=== PATIENT | female | born 1930 | race Caucasian/White ===

== ENCOUNTER 2017-01-09 11:27 | Inpatient (IN) | payer MEDICARE ==
[2017-01-09 12:32] LABS: ALT (SGPT) 14 U/L (8-55); AST (SGOT) 20 U/L (5-34); Alkaline Phosphatase 88 U/L (40-150); Anion Gap 12 mmol/L (10-20); BUN (Urea Nitrogen) 10 mg/dL (9.8-20.1); Bilirubin, Total 0.7 mg/dL (0.2-1.2); Calc. Creatinine Clearance 0 mL/min (70-130); Calcium 9.1 mg/dL (7.8-10.44); Carbon Dioxide 25 mmol/L (23-31); Chloride 107 mmol/L (98-107); Estimated GFR-MDRD 80; Globulin 3.2 g/dL (2.4-3.5); Protein, Total 6.5 g/dL (6.0-8.3)
[2017-01-09 12:34] LABS: #Basophils 0.1 thou/uL (0.0-0.2); #Eosinphils 0.1 thou/uL (0.0-0.7); #Lymphocytes 1.2 thou/uL (1.20-3.40); #Monocytes 0.4 thou/uL (0.11-0.59); #Neutrophils 3.4 thou/uL (1.40-6.50); %Basophils 1.1 % (0.0-1.0); %Eosinophils 1.4 % (0.0-10.0); %Lymphocytes 23.4 % (21.0-51.0); %Monocytes 7.1 % (0.0-10.0); Anisocytosis SLIGHT = 6-15 cells (100X) (0-5/hpf); Mean Platelet Volume 8.5 fL (7.4-10.4); Polychromasia SLIGHT = 2-3 cells (100X) (0-2/hpf); White Blood Cell (WBC) Count 5.1 thou/uL (4.8-10.8)
--- NOTE | 2017-01-09 12:45 | RAD ---
1 VIEW CHEST: Date: 01/09/17 HISTORY: Shortness of breath. COMPARISON: None. FINDINGS: Enlarged cardiac silhouette. There appears to be an increased lucency projecting over the left hemit horax which may represent a hiatal hernia. Better interrogation with 2 view chest radiograph is kalyan mmended. Pulmonary vessels are prominent. Possibility of a left-sided effusion and left lower lobe lung paren chymal changes cannot be excluded. No pneumothorax. IMPRESSION: 1. Congestive heart failure. 2. Possible infiltrate left lower lobe. 3. Possible hiatal hernia in left hemithorax. A 2 view chest radiograph is recommended. POS: [facility] [place]
[2017-01-09 13:07] LABS: Prothrombin Time 14.4 SEC (12.0-14.7)
[2017-01-09 13:13] LABS: Lactic Acid - Sepsis 1.6 mmol/L (0.5-2.2)
[2017-01-09 13:22] LABS: Troponin I 0.018 ng/mL (< 0.028)
[2017-01-09] MEDS ORDERED: Furosemide 40 MG/4 ML VIAL ONE (13:32)
[2017-01-09 13:33] LABS: Anion Gap 7 mmol/L (-14-95); T. Carbon Dioxide 31.5 mmol/L (1.0-85.0); pH (Venous) 7.313 (7.35-7.45); vO2 Saturation-calc 72.1 % (0.0-100.0)
[2017-01-09 14:11] LABS: Bilirubin Negative (Negative); Blood, Urine Negative (Negative); Glucose, Urine (Dipstick) Negative (Negative); Ketone, Urine Negative (Negative); Nitrite Negative (Negative); Protein, Urine (Dipstick) Negative (Neg-Trace)
[2017-01-09] MEDS ORDERED: Water For Inject, Bacteriostat 30 ML ONE (14:55)
[2017-01-09] MEDS ORDERED: methylPREDNISolone Sod Succ/PF 125 MG/2 ML VIAL ONE (14:55)
--- NOTE | 2017-01-09 15:33 | HP ---
PRIMARY CARE PHYSICIAN: The patient is originally from [place], currently moved to [facility], lives with her daughter and she is following Dr. Jorge Sampson. HISTORY OF PRESENT ILLNESS: An 86-year-old female who has multiple medical problems including atria l fibrillation, chronic congestive heart failure, COPD, hypertension, who came to the emergency room for increasing shortness of breath. The patient also noticed bilateral lower extremity edema with mild erythema and tenderness. This was also going on for the last 7-10 days. The patient does have chronic physical deconditioning. She has chronic low back pain. The patient is dependent on all t ype of care to others. She denies any fever or chills. She denies any cough. She denies any chest pain, palpitations, dizziness, or syncope. In the emergency room, the patient was having bilateral wheezing and she was having lower extremity edema. She was also found with atrial fibrillation with RVR. The patient is being admitted to [facility] for further evaluation and treatment. PAST MEDICAL HISTORY: Morbid obesity, chronic physical deconditioning, chronic congestive heart christina lure, likely diastolic, atrial fibrillation, hypertension, and COPD. PAST SURGICAL HISTORY: Pilonidal cyst surgery, oral surgery, appendicectomy, cholecystectomy, and h ysterectomy. PAST PSYCHIATRIC HISTORY: Senile dementia. FAMILY HISTORY: No strong family history of premature coronary artery disease, stroke or cancer. ALLERGIES: PENICILLAMINE. CURRENT HOME MEDICATIONS: Ibuprofen 600 mg 3 times daily p.r.n., clonidine 0.1 mg twice daily p.r.n ., melatonin 3 mg p.o. at bedtime, aspirin 81 mg p.o. daily, Lasix 40 mg twice daily, lisinopril 5 m g p.o. daily, metoprolol tartrate 12.5 mg twice daily, MiraLax 17 grams p.o. daily, DuoNeb q.6 hourl y, calcium carbonate one tablet as needed, probiotic as needed, hyoscyamine 0.125 mg q.6 hourly p.r. n. REVIEW OF SYSTEMS: The following complete review of systems was negative, unless otherwise mentione d in the HPI or below: Constitutional: Weight loss or gain, ability to conduct usual activities. Skin: Rash, itching. Eyes: Double vision, pain. ENT/Mouth: Nose bleeding, neck stiffness, pain, tenderness. Cardiovascular: Palpitations, dyspnea on exertion, orthopnea. Respiratory: Shortness of breath, wheezing, cough, hemoptysis, fever or night sweats. Gastrointestinal: Poor appetite, abdominal pain, heartburn, nausea, vomiting, constipation, or diar kim. Genitourinary: Urgency, frequency, dysuria, nocturia. Musculoskeletal: Pain, swelling. Neurologic/Psychiatric: Anxiety, depression. Allergy/Immunologic: Skin rash, bleeding tendency. Please see my HPI for pertinent positives and negatives. All other review of systems reviewed and n egative except as mentioned in the HPI. SOCIAL HISTORY: The patient lives with her daughter. She is originally from [place]. 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 No history of tobacco, al cohol or illicit drug abuse. She is physically deconditioning and dependent on others for care. CODE STATUS: I discussed the code status with the patient and the patient is able to make her own d ecision and she does not want to try any kind of cardiopulmonary resuscitation in case of cardiac or pulmonary arrest and she requesting DNR order. EMERGENCY ROOM COURSE: The patient is given Lasix 40 mg IV, aspirin 162 mg, DuoNeb therapy, IV flui d 250 mL, cefepime 2 gram, Levaquin 750 mg, and Solu-Medrol 125 mg. PHYSICAL EXAMINATION: VITAL SIGNS: On arrival, blood pressure 134/100, pulse 109, respiratory rate 24, temperature 97.6, saturation 92% on room air, weight 113.4 kilograms. GENERAL: The patient is currently alert, awake, chronically ill, no obvious acute distress. HEENT: Head: Normocephalic and atraumatic. Eyes: Pupils round and reactive to light. Extraocula r muscles are intact. ENT: Oropharynx within normal limits. Moist mucous membranes. No oral lesi ons. No pharyngeal erythema, no exudate. NECK: Supple. Range of motion is normal. No meningeal signs of irritation, no JVD, no thyromegaly , no carotid bruit. LUNGS: Bilateral end expiratory wheezing heard. No rales. CARDIAC: S1, S2 irregularly irregular. No murmur elicited. No gallop, no rub. ABDOMEN: Obesity, bowel sounds present, nontender, nondistended. No organomegaly, no mass, no supr apubic tenderness. BACK: Unremarkable, no CVA tenderness. EXTREMITIES: Upper extremity passive movements of all joints are normal. Lower extremities: Bilat eral lower extremity pitting edema noted. The patient does have mild erythema on both lower extremi ties, good peripheral pulsation. SKIN: No skin rash. HEMATOLOGICAL: No lymphadenopathy. PSYCHIATRIC: Normal affect. NEUROLOGIC: Nonfocal examination. The patient moves all 4 limbs. Plantar bilateral flexor. SIGNIFICANT LABS: EKG based on my review, atrial fibrillation with rapid ventricular response. Vi st x-ray based on my review, left lower lobe infiltration, hiatal hernia, findings suggestive of con gestive heart failure. CBC: WBC 5.1, hemoglobin 11.3, platelets 343. INR 1.1. VBG: pH 7.31, CO2 58.7, O2 42.5, bicarbonate 29.7. BMP: Sodium 140, potassium 4.4, chloride 107, carbon dioxide 25, anion gap 12, BUN 10, creatinine 0.70, glucose 102, calcium 9.1. LFT: AST 20, ALT 14, alkaline ph osphatase 88, albumin 3.3. CK-MB 2.6. Troponin I 0.018. BNP 402.7. Urinalysis normal. ASSESSMENT AND PLAN: 1. Acute on chronic congestive heart failure exacerbation. I am suspecting diastolic congestive he art failure, given her long history of atrial fibrillation and morbid obesity. We will obtain echoc ardiography to confirm ejection fraction and other structural abnormality. The patient has lower ex tremity pitting edema, increasing dyspnea as well as chest x-ray finding of congestive heart failure . This patient will require hospitalization. We will continue with Lasix 40 mg IV b.i.d. Fluid re striction 1200 mL per day. We will monitor input output chart, daily weight and will replace electr olytes as needed basis. 2. Chronic obstructive pulmonary disease exacerbation. This patient also has underlying chronic ob structive pulmonary disease history, we will continue with the DuoNeb every 6 hourly along with Dule ra 2 puffs inhalation b.i.d., and Solu-Medrol 20 mg IV q.8 hourly. 3. Bilateral lower extremity cellulitis. We will also continue Rocephin 2 gram IV daily and Levaqu in 500 mg IV daily. 4. Atrial fibrillation with rapid ventricular response. We will add metoprolol 12.5 mg twice daily and we will also add Cardizem 30 mg p.o. a.c. and at bedtime. We will also continue aspirin 325 mg p.o. daily. The patient is not a good candidate for chronic anticoagulation therapy because of her physical deconditioning and fall risk. If the patient heart rate is still not under control, then we will consider Cardizem drip if needed. 5. Hypertension. We will continue with lisinopril 5 mg p.o. daily, metoprolol 12.5 mg twice daily and Cardizem. 6. Morbid obesity. Dietary education given, weight loss education given. Healthy lifestyle measur es discussed with the patient. 7. Chronic Physical deconditioning. The patient will need PT, OT, and possible discharge planning to rehab versus correction home. 8. Left lower lobe infiltration, suspected for pneumonia. The patient is already on Rocephin and L evaquin therapy. 9. Deep venous thrombosis prophylaxis. Lovenox 40 mg subcu daily. 10. Gastrointestinal prophylaxis. Protonix 40 mg p.o. daily. CODE STATUS: The patient wants to be a DNR. The patient's daughter is surrogate decision maker. Disposition plan based on clinical course. This patient's labs appears unremarkable, but looking at clinically this patient is more worse than looking on the labs, doubt this patient will get better in 24 hours.
[2017-01-09] MEDS ORDERED: Labetalol HCl 100 MG/20 ML VIAL SLOW IVP PRN (17:01)
[2017-01-09] MEDS ORDERED: cefTRIAXone\\ROCEPHIN 2 GM in Sodium Chloride 0.9% 100 ML IVPB SCH (17:01)
[2017-01-09] MEDS ORDERED: Ondansetron ODT 4 MG TAB PO PRN (17:01)
[2017-01-09] MEDS ORDERED: Loperamide HCl 2 MG CAP PO PRN (17:01)
[2017-01-09] MEDS ORDERED: Senokot 8.6 MG TAB PO PRN (17:01)
[2017-01-09] MEDS ORDERED: Hyoscyamine Sulfate SL 0.125 mg Tablet PO PRN (17:01)
[2017-01-09] MEDS ORDERED: Mag-Al 1200 mg/1200 mg/30 ML UDCUP PO PRN (17:01)
[2017-01-09] MEDS ORDERED: Calcium Carbonate 500 MG ChewTAB PO PRN (17:01)
[2017-01-09] MEDS ORDERED: cloNIDine 0.1 MG TAB PO PRN (17:01)
[2017-01-09] MEDS ORDERED: Eucerin (Mineral Oil/Petrolatum,White) 30 gm Jar TOP PRN (17:01)
[2017-01-09] MEDS ORDERED: HYDROcodone/Acetaminophen 5/325 mg Tablet PO PRN (17:01)
[2017-01-09] MEDS ORDERED: Acetaminophen 325 MG TAB PO PRN (17:01)
[2017-01-09] MEDS ORDERED: Ondansetron HCl/PF 4 MG/2 ML Vial IVP PRN (17:01)
[2017-01-09] MEDS ORDERED: Sodium Chloride 0.65% Nasal 44 ML BOT EA NARE PRN (17:01)
[2017-01-09] MEDS ORDERED: Milk Of Magnesia 30 ML UDCUP PO PRN (17:01)
[2017-01-09] MEDS ORDERED: Chloraseptic Spray 180 ml Bottle PO PRN (17:01)
[2017-01-09] MEDS ORDERED: Melatonin 3 MG TAB PO PRN (17:01)
[2017-01-09] MEDS ORDERED: Artificial Tear Sol 15 ML BOT EA EYE PRN (17:01)
[2017-01-09] MEDS ORDERED: Diabetic Tussin 200 MG/10 ML UDCUP PO PRN (17:01)
[2017-01-09] MEDS ORDERED: Loratadine 10 MG TAB PO PRN (17:01)
[2017-01-09 17:06] VITALS: BMI 46.5
[2017-01-09] MEDS: Mometasone/Formoterol 120 PUFF INHALER INH SCH (18:37)
[2017-01-09] MEDS ORDERED: Diltiazem HCl 125 MG, Admixture Fee 1 EACH in Sodium Chloride 0.9% 100 ML IVPB SCH (19:00)
[2017-01-09] MEDS: Famotidine 20 MG TAB PO SCH (19:50)
[2017-01-09] MEDS: Metoprolol Tartrate 25 MG TAB PO SCH (19:51)
[2017-01-09] MEDS ORDERED: Aspirin 325 MG TAB PO SCH (23:00)
[2017-01-10] MEDS: Furosemide 40 MG/4 ML VIAL SLOW IVP SCH ×2 (05:13→14:49)
[2017-01-10] MEDS: Benzonatate 100 MG CAP PO PRN ×2 (05:20→16:30)
[2017-01-10 05:22] LABS: #Lymphocytes 0.5 thou/uL (1.20-3.40); #Neutrophils 2.9 thou/uL (1.40-6.50); %Eosinophils 0.1 % (0.0-10.0); %Lymphocytes 15.4 % (21.0-51.0); Hematocrit 37.7 % (36.0-47.0); Mean Platelet Volume 8.5 fL (7.4-10.4); Red Blood Cell (RBC) Count 4.41 mill/uL (4.20-5.40); White Blood Cell (WBC) Count 3.5 thou/uL (4.8-10.8)
[2017-01-10 05:30] LABS: Anion Gap 14 mmol/L (10-20); BUN (Urea Nitrogen) 13 mg/dL (9.8-20.1); Calc. Creatinine Clearance 108 mL/min (70-130); Calcium 9.2 mg/dL (7.8-10.44); Carbon Dioxide 26 mmol/L (23-31); Chloride 106 mmol/L (98-107); Estimated GFR-MDRD 70; Uric Acid 9.2 mg/dL (2.6-6.0)
[2017-01-10] MEDS: Mometasone/Formoterol 120 PUFF INHALER INH SCH ×2 (06:58→19:17)
[2017-01-10] MEDS: Lisinopril 5 MG TAB PO SCH (08:16)
[2017-01-10] MEDS: Metoprolol Tartrate 25 MG TAB PO SCH ×2 (08:16→21:46)
[2017-01-10] MEDS: Famotidine 20 MG TAB PO SCH ×2 (08:16→21:45)
[2017-01-10] MEDS: Enoxaparin Sodium 40 MG/0.4 ML SYRINGE SC SCH (08:17)
[2017-01-10] MEDS: Polyethylene Glycol 3350 17 GM Packet PO SCH (08:17)
[2017-01-10] MEDS: Saccharomyces boulardii 250 MG CAP PO SCH (08:17)
--- NOTE | 2017-01-10 14:37 | PDOC.PN ---
- Subjective Encounter Start Date: 01/10/17 Encounter Start Time: 10:00 Subjective: awake, not fully oriented -: no chest pain - Objective Resuscitation Status: Resuscitation Status DNR:Do Not Resuscitate MAR Reviewed: Yes Vital Signs & Weight: Vital Signs (12 hours) Temp Pulse Pulse Pulse Pulse Pulse Resp 01/10/17 11:18 83 71 82 75 01/10/17 08:36 98.6 F 89 20 01/10/17 08:25 98.6 F 89 20 01/10/17 06:56 86 18 01/10/17 04:00 98.2 F 113 H 21 H BP BP BP BP BP Pulse Ox Pulse Ox 01/10/17 11:18 97/56 L 107/51 L 172/73 H 141/64 H 96 01/10/17 08:36 134/65 92 L 01/10/17 08:25 01/10/17 06:56 95 01/10/17 04:00 167/81 H 95 Pulse Ox Pulse Ox 01/10/17 11:18 95 97 01/10/17 08:36 01/10/17 08:25 01/10/17 06:56 01/10/17 04:00 Weight Weight 286 lb 3.2 oz I&O: 01/09/17 01/10/17 01/11/17 06:59 06:59 06:59 Intake Total 600 600 Output Total 500 1750 Balance 100 -1150 Result Diagrams: 01/10/17 04:43 01/10/17 04:43 Phys Exam - Physical Examination HEENT: PERRLA, moist MMs Neck: no JVD, supple Respiratory: no wheezing, no rales Cardiovascular: RRR, no significant murmur Gastrointestinal: soft, non-tender, positive bowel sounds Musculoskeletal: no edema, pulses present Neurological: non-focal, moves all 4 limbs Dx/Plan (1) Acute exacerbation of CHF (congestive heart failure) Code(s): I50.9 - HEART FAILURE, UNSPECIFIED Status: Acute Qualifiers: Congestive heart failure type: unspecified congestive heart failure type Qualified Code(s): I50.9 - Heart failure, unspecified Comment: await echo (2) Acute respiratory failure with hypoxia and hypercarbia Code(s): J96.01 - ACUTE RESPIRATORY FAILURE WITH HYPOXIA; J96.02 - ACUTE RESPIRATORY FAILURE WITH HYPERCAPNIA Status: Resolved (3) COPD (chronic obstructive pulmonary disease) Status: Acute Qualifiers: COPD type: COPD with acute exacerbation Qualified Code(s): J44.1 - Chronic obstructive pulmonary disease with (acute) exacerbation (4) Chronic anemia Code(s): D64.9 - ANEMIA, UNSPECIFIED Status: Chronic (5) Acute encephalopathy Code(s): G93.40 - ENCEPHALOPATHY, UNSPECIFIED Status: Acute (6) Afib Code(s): I48.91 - UNSPECIFIED ATRIAL FIBRILLATION Status: Chronic Qualifiers: Atrial fibrillation type: chronic Qualified Code(s): I48.2 - Chronic atrial fibrillation (7) Obesity Code(s): E66.9 - OBESITY, UNSPECIFIED Status: Chronic Qualifiers: Obesity classification: adult class 3 (BMI >= 40) Body mass index: BMI 45.0 -49.9 (8) Dementia Code(s): F03.90 - UNSPECIFIED DEMENTIA WITHOUT BEHAVIORAL DISTURBANCE Status: Chronic Qualifiers: Dementia type: unspecified type - Plan is on lasix iv q12h -: levaquin empiric -: await echo results -: needs close supervision with confusion at present -: PT eval * . Review of Systems - Medications/Allergies Allergies/Adverse Reactions: Allergies Allergy/AdvReac Type Severity Reaction Status Date / Time Penicillins Allergy Verified 01/09/17 17:12 Medications: Current Medications Acetaminophen (Tylenol) 650 mg PO Q4H PRN PRN Reason: Headache/Fever or Pain Hydrocodone Bitart/Acetaminophen ([place] 5/325) 1 tab PO Q4H PRN PRN Reason: Moderate Pain (4-6) Al Hydroxide/Mg Hydroxide (Maalox) 30 ml PO Q6H PRN PRN Reason: Heartburn or Indigestion Albuterol/Ipratropium (Duoneb) 3 ml NEB [id number] REDDY Last Admin: 01/10/17 13:50 Dose: Not Given Albuterol/Ipratropium (Duoneb) 3 ml NEB [id number] PRN PRN Reason: SOB &/or Wheezing Artificial Tears (Tears Renewed 15ml Bottle) 0 drop EA EYE PRN PRN PRN Reason: Dry Eyes Aspirin (Aspirin) 325 mg PO HS REDDY Benzonatate (Tessalon) 100 mg PO Q4H PRN PRN Reason: Cough Last Admin: 01/10/17 05:20 Dose: 100 mg Calcium Carbonate (Tums) 1,000 mg PO Q4H PRN PRN Reason: Heartburn or Indigestion Clonidine (Catapres) 0.1 mg PO Q4H PRN PRN Reason: Systolic BP > 180 Diltiazem HCl (Cardizem) 30 mg PO ACHS [facility] Last Admin: 01/10/17 11:46 Dose: 30 mg Enoxaparin Sodium (Lovenox) 40 mg SC 0900 [facility] Last Admin: 01/10/17 08:17 Dose: 40 mg Famotidine (Pepcid) 20 mg PO BID [facility] Last Admin: 01/10/17 08:16 Dose: 20 mg Furosemide (Lasix) 40 mg SLOW IVP 0600,1400 [facility] Last Admin: 01/10/17 05:13 Dose: 40 mg Guaifenesin (Robitussin Sf) 200 mg PO Q4H PRN PRN Reason: Cough Hyoscyamine Sulfate (Levsin Sl) 0.125 mg PO Q4H PRN PRN Reason: GI Cramping Levofloxacin 500 mg/ Device 100 mls @ 100 mls/hr IVPB Q24HR@1500 [facility] Diltiazem HCl 125 mg/Miscellaneous Medication 1 each/ Sodium Chloride 125 mls @ 5 mls/hr IVPB INF [facility] PRN Reason: Protocol Last Admin: 01/09/17 19:50 Dose: 125 mls Labetalol HCl (Normodyne) 20 mg SLOW IVP Q4H PRN PRN Reason: Systolic BP > 180 Lisinopril (Zestril) 5 mg PO DAILY [facility] Last Admin: 01/10/17 08:16 Dose: 5 mg Loperamide HCl (Imodium) 2 mg PO PRN PRN PRN Reason: Diarrhea/Loose Stools Loratadine (Claritin) 10 mg PO DAILYPRN PRN PRN Reason: Sinus Symptoms Magnesium Hydroxide (Milk Of Magnesium) 30 ml PO DAILYPRN PRN PRN Reason: Constipation Melatonin (Melatonin) 3 mg PO HS PRN PRN Reason: Insomnia Methylprednisolone Sodium Succinate (Solu-Medrol) 20 mg IVP Q8HR [facility] Last Admin: 01/10/17 05:16 Dose: 20 mg Metoprolol Tartrate (Lopressor) 12.5 mg PO BID [facility] Last Admin: 01/10/17 08:16 Dose: 12.5 mg Mineral Oil/White Petrolatum (Eucerin Cream) 0 gm TOP BIDPRN PRN PRN Reason: Dry Skin Mometasone Furoate/Formoterol Fumar (Dulera 200 Mcg/5 Mcg Inhaler) 2 puff INH BID-RT [facility] Last Admin: 01/10/17 06:58 Dose: 2 puff Ondansetron HCl (Zofran Odt) 4 mg PO Q6H PRN PRN Reason: Nausea/Vomiting Ondansetron HCl (Zofran) 4 mg IVP Q6H PRN PRN Reason: Nausea/Vomiting Phenol (Chloraseptic [place] 180 Ml Bot) 0 ml PO PRN PRN PRN Reason: Sore Throat Polyethylene Glycol (Miralax) 17 gm PO DAILY [facility] Last Admin: 01/10/17 08:17 Dose: 17 gm Saccharomyces Boulardii (Florastor) 250 mg PO DAILY [facility] Last Admin: 01/10/17 08:17 Dose: 250 mg Senna (Senokot) 2 tab PO HSPRN PRN PRN Reason: Constipation Sodium Chloride ([place] Nasal [place] 0.65%) 0 ml EA NARE QIDPRN PRN PRN Reason: Nasal Congestion
[2017-01-10] MEDS: Aspirin 325 MG TAB PO SCH (21:45)
[2017-01-11] MEDS: Furosemide 40 MG/4 ML VIAL SLOW IVP SCH (05:29)
[2017-01-11] MEDS: Mometasone/Formoterol 120 PUFF INHALER INH SCH ×2 (07:04→19:10)
[2017-01-11 08:35] LABS: Anion Gap 16 mmol/L (10-20); BUN (Urea Nitrogen) 23 mg/dL (9.8-20.1); Calc. Creatinine Clearance 110 mL/min (70-130); Calcium 9.7 mg/dL (7.8-10.44); Carbon Dioxide 24 mmol/L (23-31); Chloride 106 mmol/L (98-107); Estimated GFR-MDRD 72
[2017-01-11] MEDS: Lisinopril 5 MG TAB PO SCH (08:40)
[2017-01-11] MEDS: Saccharomyces boulardii 250 MG CAP PO SCH (08:40)
[2017-01-11] MEDS: Famotidine 20 MG TAB PO SCH ×2 (08:40→20:50)
[2017-01-11] MEDS: Metoprolol Tartrate 25 MG TAB PO SCH ×2 (08:40→22:07)
[2017-01-11] MEDS: Polyethylene Glycol 3350 17 GM Packet PO SCH (08:41)
[2017-01-11] MEDS: Enoxaparin Sodium 40 MG/0.4 ML SYRINGE SC SCH (08:41)
[2017-01-11] MEDS: predniSONE 5 MG TAB PO SCH (09:01)
[2017-01-11 09:07] LABS: #Lymphocytes 0.7 thou/uL (1.20-3.40); #Monocytes 0.2 thou/uL (0.11-0.59); #Neutrophils 5.9 thou/uL (1.40-6.50); %Eosinophils 0.2 % (0.0-10.0); %Lymphocytes 10.1 % (21.0-51.0); %Monocytes 3.3 % (0.0-10.0); Hematocrit 36.2 % (36.0-47.0); Hypochromia SLIGHT = 6-15 cells (100X) (0-5/hpf); Mean Platelet Volume 9.2 fL (7.4-10.4); Ovalocytes SLIGHT = 2-5 cells (100X) (0-1/hpf); Polychromasia SLIGHT = 2-3 cells (100X) (0-2/hpf); Red Blood Cell (RBC) Count 4.14 mill/uL (4.20-5.40); White Blood Cell (WBC) Count 6.8 thou/uL (4.8-10.8)
--- NOTE | 2017-01-11 11:57 | PDOC.PN ---
- Subjective Encounter Start Date: 01/11/17 Encounter Start Time: 09:45 Subjective: awake, no sob -: not fully oriented, is able to name some grand kids and knows her daughter -: -at bedside - Objective Resuscitation Status: Resuscitation Status DNR:Do Not Resuscitate MAR Reviewed: Yes Vital Signs & Weight: Vital Signs (12 hours) Temp Pulse Resp BP Pulse Ox 01/11/17 08:35 98.5 F 84 18 108/53 L 94 L 01/11/17 07:04 85 16 96 01/11/17 07:01 85 16 96 01/11/17 04:00 97.8 F 78 18 138/61 97 01/11/17 00:45 97 01/10/17 23:57 77 20 97 Weight Weight 285 lb I&O: 01/10/17 01/11/17 01/12/17 06:59 06:59 06:59 Intake Total 600 1990 Output Total 500 3000 Balance 100 -1010 Result Diagrams: 01/11/17 04:45 01/11/17 04:45 Phys Exam - Physical Examination HEENT: PERRLA, moist MMs Neck: no JVD, supple Respiratory: no wheezing, no rales Cardiovascular: no significant murmur, irregular Gastrointestinal: soft, non-tender, positive bowel sounds Musculoskeletal: no edema, pulses present Neurological: non-focal, moves all 4 limbs Dx/Plan (1) Acute exacerbation of CHF (congestive heart failure) Code(s): I50.9 - HEART FAILURE, UNSPECIFIED Status: Acute Qualifiers: Congestive heart failure type: diastolic Qualified Code(s): I50.33 - Acute on chronic diastolic (congestive) heart failure (2) Acute respiratory failure with hypoxia and hypercarbia Code(s): J96.01 - ACUTE RESPIRATORY FAILURE WITH HYPOXIA; J96.02 - ACUTE RESPIRATORY FAILURE WITH HYPERCAPNIA Status: Resolved (3) COPD (chronic obstructive pulmonary disease) Status: Acute Qualifiers: COPD type: COPD with acute exacerbation Qualified Code(s): J44.1 - Chronic obstructive pulmonary disease with (acute) exacerbation (4) Chronic anemia Code(s): D64.9 - ANEMIA, UNSPECIFIED Status: Chronic (5) Acute encephalopathy Code(s): G93.40 - ENCEPHALOPATHY, UNSPECIFIED Status: Acute (6) Afib Code(s): I48.91 - UNSPECIFIED ATRIAL FIBRILLATION Status: Chronic Qualifiers: Atrial fibrillation type: chronic Qualified Code(s): I48.2 - Chronic atrial fibrillation (7) Obesity Code(s): E66.9 - OBESITY, UNSPECIFIED Status: Chronic Qualifiers: Obesity classification: adult class 3 (BMI >= 40) Body mass index: BMI 45.0 -49.9 (8) Dementia Code(s): F03.90 - UNSPECIFIED DEMENTIA WITHOUT BEHAVIORAL DISTURBANCE Status: Chronic Qualifiers: Dementia type: unspecified type - Plan oral lasix and prednisone -: will dc levaquin on discharge -: has taken 4-5 steps with PT, to mobilize more -: d/w daughter, rehab eval if declined will likely need swing bed -: dc plan in am, afib is rate controlled on oral cardizem * . Review of Systems - Medications/Allergies Allergies/Adverse Reactions: Allergies Allergy/AdvReac Type Severity Reaction Status Date / Time Penicillins Allergy Verified 01/09/17 17:12 Medications: Current Medications Acetaminophen (Tylenol) 650 mg PO Q4H PRN PRN Reason: Headache/Fever or Pain Last Admin: 01/11/17 08:40 Dose: 650 mg Hydrocodone Bitart/Acetaminophen ([place] 5/325) 1 tab PO Q4H PRN PRN Reason: Moderate Pain (4-6) Al Hydroxide/Mg Hydroxide (Maalox) 30 ml PO Q6H PRN PRN Reason: Heartburn or Indigestion Albuterol/Ipratropium (Duoneb) 3 ml NEB [id number] REDDY Last Admin: 01/11/17 07:01 Dose: 3 ml Albuterol/Ipratropium (Duoneb) 3 ml NEB [id number] PRN PRN Reason: SOB &/or Wheezing Artificial Tears (Tears Renewed 15ml Bottle) 0 drop EA EYE PRN PRN PRN Reason: Dry Eyes Aspirin (Aspirin) 325 mg PO HS REDDY Last Admin: 01/10/17 21:45 Dose: 325 mg Benzonatate (Tessalon) 100 mg PO Q4H PRN PRN Reason: Cough Last Admin: 01/10/17 16:30 Dose: 100 mg Calcium Carbonate (Tums) 1,000 mg PO Q4H PRN PRN Reason: Heartburn or Indigestion Clonidine (Catapres) 0.1 mg PO Q4H PRN PRN Reason: Systolic BP > 180 Diltiazem HCl (Cardizem) 30 mg PO ACHS [facility] Last Admin: 01/11/17 11:25 Dose: 30 mg Enoxaparin Sodium (Lovenox) 40 mg SC 0900 [facility] Last Admin: 01/11/17 08:41 Dose: 40 mg Famotidine (Pepcid) 20 mg PO BID [facility] Last Admin: 01/11/17 08:40 Dose: 20 mg Furosemide (Lasix) 40 mg PO 0900,1400 [facility] Guaifenesin (Robitussin Sf) 200 mg PO Q4H PRN PRN Reason: Cough Hyoscyamine Sulfate (Levsin Sl) 0.125 mg PO Q4H PRN PRN Reason: GI Cramping Labetalol HCl (Normodyne) 20 mg SLOW IVP Q4H PRN PRN Reason: Systolic BP > 180 Levofloxacin (Levaquin) 500 mg PO 0600 [facility] Lisinopril (Zestril) 5 mg PO DAILY [facility] Last Admin: 01/11/17 08:40 Dose: 5 mg Loperamide HCl (Imodium) 2 mg PO PRN PRN PRN Reason: Diarrhea/Loose Stools Loratadine (Claritin) 10 mg PO DAILYPRN PRN PRN Reason: Sinus Symptoms Magnesium Hydroxide (Milk Of Magnesium) 30 ml PO DAILYPRN PRN PRN Reason: Constipation Last Admin: 01/11/17 08:41 Dose: 30 ml Melatonin (Melatonin) 3 mg PO HS PRN PRN Reason: Insomnia Metoprolol Tartrate (Lopressor) 12.5 mg PO BID [facility] Last Admin: 01/11/17 08:40 Dose: 12.5 mg Mineral Oil/White Petrolatum (Eucerin Cream) 0 gm TOP BIDPRN PRN PRN Reason: Dry Skin Mometasone Furoate/Formoterol Fumar (Dulera 200 Mcg/5 Mcg Inhaler) 2 puff INH BID-RT [facility] Last Admin: 01/11/17 07:04 Dose: 2 puff Ondansetron HCl (Zofran Odt) 4 mg PO Q6H PRN PRN Reason: Nausea/Vomiting Ondansetron HCl (Zofran) 4 mg IVP Q6H PRN PRN Reason: Nausea/Vomiting Phenol (Chloraseptic [place] 180 Ml Bot) 0 ml PO PRN PRN PRN Reason: Sore Throat Polyethylene Glycol (Miralax) 17 gm PO DAILY [facility] Last Admin: 01/11/17 08:41 Dose: 17 gm Prednisone (Prednisone) 5 mg PO QA-[facility] Last Admin: 01/11/17 09:01 Dose: 5 mg Saccharomyces Boulardii (Florastor) 250 mg PO DAILY [facility] Last Admin: 01/11/17 08:40 Dose: 250 mg Senna (Senokot) 2 tab PO HSPRN PRN PRN Reason: Constipation Sodium Chloride ([place] Nasal [place] 0.65%) 0 ml EA NARE QIDPRN PRN PRN Reason: Nasal Congestion Sodium Chloride (Flush - Normal Saline) 10 ml IVF Q12HR [facility] Last Admin: 01/11/17 08:45 Dose: 10 ml Sodium Chloride (Flush - Normal Saline) 10 ml IVF PRN PRN PRN Reason: Saline Flush
[2017-01-11] MEDS: Furosemide 20 MG TAB PO SCH (15:26)
[2017-01-11] MEDS: Aspirin 325 MG TAB PO SCH (20:49)
[2017-01-12 05:17] LABS: #Lymphocytes 1.1 thou/uL (1.20-3.40); #Monocytes 0.4 thou/uL (0.11-0.59); #Neutrophils 4.8 thou/uL (1.40-6.50); %Basophils 0.2 % (0.0-1.0); %Eosinophils 0.2 % (0.0-10.0); %Lymphocytes 17.4 % (21.0-51.0); Hematocrit 34.9 % (36.0-47.0); Mean Platelet Volume 8.8 fL (7.4-10.4); Red Blood Cell (RBC) Count 4.04 mill/uL (4.20-5.40); White Blood Cell (WBC) Count 6.4 thou/uL (4.8-10.8)
[2017-01-12 05:33] LABS: Anion Gap 12 mmol/L (10-20); BUN (Urea Nitrogen) 28 mg/dL (9.8-20.1); Calc. Creatinine Clearance 109 mL/min (70-130); Calcium 9.2 mg/dL (7.8-10.44); Carbon Dioxide 30 mmol/L (23-31); Chloride 103 mmol/L (98-107); Estimated GFR-MDRD 71
[2017-01-12] MEDS: Mometasone/Formoterol 120 PUFF INHALER INH SCH (06:57)
--- NOTE | 2017-01-12 09:21 | PDOC.PN ---
- Subjective Encounter Start Date: 01/12/17 Encounter Start Time: 07:30 Subjective: no sob, wants more of oatmeal and toast this am -: no chest pain or palp -: is awake eating breakfast, not fully oriented - Objective Resuscitation Status: Resuscitation Status DNR:Do Not Resuscitate MAR Reviewed: Yes Vital Signs & Weight: Vital Signs (12 hours) Temp Pulse Resp BP Pulse Ox 01/12/17 06:57 75 16 95 01/12/17 06:56 75 16 95 01/12/17 05:19 97.7 F 78 18 115/63 92 L 01/12/17 00:24 97 01/11/17 23:40 80 16 97 01/11/17 23:37 98.0 F 80 20 125/73 98 Weight Weight 285 lb 3 oz I&O: 01/11/17 01/12/17 01/13/17 06:59 06:59 06:59 Intake Total 1989 1500 Output Total 3000 2690 Balance -1010 -1190 Result Diagrams: 01/12/17 05:02 01/12/17 05:02 Phys Exam - Physical Examination HEENT: PERRLA, moist MMs Neck: no JVD, supple Respiratory: no wheezing, no rales Cardiovascular: no significant murmur, irregular Gastrointestinal: soft, no distention, positive bowel sounds Musculoskeletal: pulses present, edema present Neurological: non-focal, moves all 4 limbs Dx/Plan (1) Acute exacerbation of CHF (congestive heart failure) Code(s): I50.9 - HEART FAILURE, UNSPECIFIED Status: Acute Qualifiers: Congestive heart failure type: diastolic Qualified Code(s): I50.33 - Acute on chronic diastolic (congestive) heart failure (2) Acute respiratory failure with hypoxia and hypercarbia Code(s): J96.01 - ACUTE RESPIRATORY FAILURE WITH HYPOXIA; J96.02 - ACUTE RESPIRATORY FAILURE WITH HYPERCAPNIA Status: Resolved (3) COPD (chronic obstructive pulmonary disease) Status: Acute Qualifiers: COPD type: COPD with acute exacerbation Qualified Code(s): J44.1 - Chronic obstructive pulmonary disease with (acute) exacerbation (4) Chronic anemia Code(s): D64.9 - ANEMIA, UNSPECIFIED Status: Chronic (5) Acute encephalopathy Code(s): G93.40 - ENCEPHALOPATHY, UNSPECIFIED Status: Acute Comment: sec to above and underlying dementia (6) Afib Code(s): I48.91 - UNSPECIFIED ATRIAL FIBRILLATION Status: Chronic Qualifiers: Atrial fibrillation type: chronic Qualified Code(s): I48.2 - Chronic atrial fibrillation (7) Obesity Code(s): E66.9 - OBESITY, UNSPECIFIED Status: Chronic Qualifiers: Obesity classification: adult class 3 (BMI >= 40) Body mass index: BMI 45.0 -49.9 (8) Dementia Code(s): F03.90 - UNSPECIFIED DEMENTIA WITHOUT BEHAVIORAL DISTURBANCE Status: Chronic Qualifiers: Dementia type: unspecified type - Plan hemostable -: may dc pt to snf/rehab if accepted -: oral lasix, duonebs -: is morbidly obese and has to keep her knees down while sitting up to breath -: -better. 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 Review of Systems - Medications/Allergies Allergies/Adverse Reactions: Allergies Allergy/AdvReac Type Severity Reaction Status Date / Time Penicillins Allergy Verified 01/09/17 17:12 Medications: Current Medications Acetaminophen (Tylenol) 650 mg PO Q4H PRN PRN Reason: Headache/Fever or Pain Last Admin: 01/11/17 08:40 Dose: 650 mg Hydrocodone Bitart/Acetaminophen ([place] 5/325) 1 tab PO Q4H PRN PRN Reason: Moderate Pain (4-6) Al Hydroxide/Mg Hydroxide (Maalox) 30 ml PO Q6H PRN PRN Reason: Heartburn or Indigestion Albuterol/Ipratropium (Duoneb) 3 ml NEB [id number] REDDY Last Admin: 01/12/17 06:56 Dose: 3 ml Albuterol/Ipratropium (Duoneb) 3 ml NEB [id number] PRN PRN Reason: SOB &/or Wheezing Artificial Tears (Tears Renewed 15ml Bottle) 0 drop EA EYE PRN PRN PRN Reason: Dry Eyes Aspirin (Aspirin) 325 mg PO HS REDDY Last Admin: 01/11/17 20:49 Dose: 325 mg Benzonatate (Tessalon) 100 mg PO Q4H PRN PRN Reason: Cough Last Admin: 01/10/17 16:30 Dose: 100 mg Calcium Carbonate (Tums) 1,000 mg PO Q4H PRN PRN Reason: Heartburn or Indigestion Clonidine (Catapres) 0.1 mg PO Q4H PRN PRN Reason: Systolic BP > 180 Diltiazem HCl (Cardizem) 30 mg PO ACHS [facility] Last Admin: 01/11/17 20:55 Dose: 30 mg Enoxaparin Sodium (Lovenox) 40 mg SC 0900 [facility] Last Admin: 01/11/17 08:41 Dose: 40 mg Famotidine (Pepcid) 20 mg PO BID [facility] Last Admin: 01/11/17 20:50 Dose: 20 mg Furosemide (Lasix) 40 mg PO 0900,1400 [facility] Last Admin: 01/11/17 15:26 Dose: 40 mg Guaifenesin (Robitussin Sf) 200 mg PO Q4H PRN PRN Reason: Cough Hyoscyamine Sulfate (Levsin Sl) 0.125 mg PO Q4H PRN PRN Reason: GI Cramping Labetalol HCl (Normodyne) 20 mg SLOW IVP Q4H PRN PRN Reason: Systolic BP > 180 Levofloxacin (Levaquin) 500 mg PO 1500 [facility] Last Admin: 01/11/17 15:26 Dose: 500 mg Lisinopril (Zestril) 5 mg PO DAILY [facility] Last Admin: 01/11/17 08:40 Dose: 5 mg Loperamide HCl (Imodium) 2 mg PO PRN PRN PRN Reason: Diarrhea/Loose Stools Loratadine (Claritin) 10 mg PO DAILYPRN PRN PRN Reason: Sinus Symptoms Magnesium Hydroxide (Milk Of Magnesium) 30 ml PO DAILYPRN PRN PRN Reason: Constipation Last Admin: 01/11/17 08:41 Dose: 30 ml Melatonin (Melatonin) 3 mg PO HS PRN PRN Reason: Insomnia Metoprolol Tartrate (Lopressor) 12.5 mg PO BID [facility] Last Admin: 01/11/17 22:07 Dose: 12.5 mg Mineral Oil/White Petrolatum (Eucerin Cream) 0 gm TOP BIDPRN PRN PRN Reason: Dry Skin Mometasone Furoate/Formoterol Fumar (Dulera 200 Mcg/5 Mcg Inhaler) 2 puff INH BID-RT [facility] Last Admin: 01/12/17 06:57 Dose: 2 puff Ondansetron HCl (Zofran Odt) 4 mg PO Q6H PRN PRN Reason: Nausea/Vomiting Ondansetron HCl (Zofran) 4 mg IVP Q6H PRN PRN Reason: Nausea/Vomiting Phenol (Chloraseptic [place] 180 Ml Bot) 0 ml PO PRN PRN PRN Reason: Sore Throat Polyethylene Glycol (Miralax) 17 gm PO DAILY [facility] Last Admin: 01/11/17 08:41 Dose: 17 gm Prednisone (Prednisone) 5 mg PO QAM-[facility] Last Admin: 01/11/17 09:01 Dose: 5 mg Saccharomyces Boulardii (Florastor) 250 mg PO DAILY [facility] Last Admin: 01/11/17 08:40 Dose: 250 mg Senna (Senokot) 2 tab PO HSPRN PRN PRN Reason: Constipation Sodium Chloride ([place] Nasal [place] 0.65%) 0 ml EA NARE QIDPRN PRN PRN Reason: Nasal Congestion Sodium Chloride (Flush - Normal Saline) 10 ml IVF Q12HR [facility] Last Admin: 01/11/17 20:55 Dose: 10 ml Sodium Chloride (Flush - Normal Saline) 10 ml IVF PRN PRN PRN Reason: Saline Flush
[2017-01-12] MEDS: Enoxaparin Sodium 40 MG/0.4 ML SYRINGE SC SCH (10:22)
[2017-01-12] MEDS: Famotidine 20 MG TAB PO SCH (10:23)
[2017-01-12] MEDS: Saccharomyces boulardii 250 MG CAP PO SCH (10:23)
[2017-01-12] MEDS: Lisinopril 5 MG TAB PO SCH (10:23)
[2017-01-12] MEDS: Polyethylene Glycol 3350 17 GM Packet PO SCH (10:23)
[2017-01-12] MEDS: Metoprolol Tartrate 25 MG TAB PO SCH (10:24)
[2017-01-12] MEDS: Furosemide 20 MG TAB PO SCH ×2 (10:24→14:30)
[2017-01-12] MEDS: predniSONE 5 MG TAB PO SCH (10:25)
--- NOTE | 2017-01-12 12:38 | DIS ---
DATE OF ADMISSION: 01/09/2017 DATE OF DISCHARGE: 01/12/2017 DISCHARGE DISPOSITION: To inpatient rehabilitation. PRIMARY DISCHARGE DIAGNOSES: Acute congestive heart failure exacerbation, acute respiratory failure with hypoxia, resolved, and chronic obstructive pulmonary disease. SECONDARY DISCHARGE DIAGNOSES: Acute encephalopathy due to above-mentioned primary diagnosis and underlying dementia, chronic atrial fibrillation, obesity , and dementia. PROCEDURES DONE DURING HOSPITALIZATION: The patient has had an echo with 2D Doppler done which showed ejection fraction of 60% with likely diastolic dysfunction. She had mild to moderate tricuspid regurgitation on the echo. Chest x-ray done showed pulmonary vascular congestion. H\T\H 10 and 34, platelet count 319. Initial venous blood gas done showed a pH of 7.31 with a pCO2 of 58. Discharge BUN and creatinine is 28 and 0.7. Troponin x2 was negative. BNP 402. DISCHARGE MEDICATIONS: Aspirin 81 mg p.o. daily, Cardizem 30 mg p.o. a.c. and at bedtime, Lasix 40 mg p.o. twice daily, DuoNebs q.i.d. p.r.n., lisinopril 5 mg p.o. daily, melatonin 3 mg p.o. at bedtime, Lopressor 25 mg twice daily, MiraLax 17 grams p.o. daily. ALLERGIES: PENICILLIN. DISCHARGE PLAN: The patient is being discharged to inpatient rehabilitation. BRIEF COURSE DURING HOSPITALIZATION: Patient initially came on the after she was brought by her daughter for complaints of increasing shortness of breath and lower extremity edema. She has also had severe deconditioning. Ms. Grimes also had mild fibrillation with RVR, which was rate controlled during her stay here. She was gently diuresed for acute on chronic CHF exacerbation with diastolic dysfunction, likely due to atrial fibrillation with RVR. Her medications were optimized. Due to severe deconditioning, a rehab evaluation was requested and has been accepted today. The patient has taken four steps with physical therapy during her stay here. She needs to follow up with her primary care physician in 1 week. The patient had acute encephalopathy likely due to underlying dementia and current exacerbation of CHF and atrial fibrillation with RVR. She is otherwise hemodynamically stable and will be shortly discharged to rehabilitation. Please see a face to face documentation on [facility] for the day of discharge. A total of 35 minutes was spent on discharge plan. [id number]
[2017-01-12 21:20] VITALS: BP 104/56
[2017-01-12 21:23] VITALS: TEMP 97.9
== END 2017-01-12 18:14 | DRG 291 ==
LOC: ERS 11:27 → 2NO 16:26 → OBSVTOIN 16:26
PROVIDERS: ADMIT Hospitalist; ATTEND Hospitalist
DX: I11.0 Hypertensive heart disease with heart failure (principal); J96.01 Acute respiratory failure with hypoxia; G93.40 Encephalopathy, unspecified; J96.02 Acute respiratory failure with hypercapnia; J44.1 Chronic obstructive pulmonary disease with (acute) exacerbation; Z68.42 Body mass index [BMI] 45.0-49.9, adult; L03.115 Cellulitis of right lower limb; L03.116 Cellulitis of left lower limb; I50.33 Acute on chronic diastolic (congestive) heart failure; D64.9 Anemia, unspecified; F03.90 Unspecified dementia, unspecified severity, without behavioral disturbance, psychotic disturbance, mood disturbance, and anxiety; E66.01 Morbid (severe) obesity due to excess calories; Z66 Do not resuscitate; G89.29 Other chronic pain; M54.5 Low back pain; I48.2 Chronic atrial fibrillation
CPT/HCPCS: 36415; 51701; 71010; 80048; 80053; 81003; 82330; 82553; 82803; 83605; 83735; 83880; 84484; 84550; 85025; 85610; 87040; 87086; 87149; 93005; 93306; 94640; 94760; 96361; 96374; 96375; A4216; A4353; B4087; G8978-GP-CJ; G8979-GP-CI; G8987-GO-CL; G8988-GO-CJ; J1650; J1940; J1956; J2920; J2930; J7050; J7620

== ENCOUNTER 2017-02-17 15:16 | Emergency (ER) | payer MEDICARE ==
[2017-02-17 15:54] LABS: Hematocrit 40.2 % (36.0-47.0); Mean Platelet Volume 8.6 fL (7.4-10.4); White Blood Cell (WBC) Count 7.7 thou/uL (4.8-10.8)
[2017-02-17 16:15] LABS: ALT (SGPT) 16 U/L (8-55); AST (SGOT) 20 U/L (5-34); Alkaline Phosphatase 100 U/L (40-150); Anion Gap 14 mmol/L (10-20); BUN (Urea Nitrogen) 15 mg/dL (9.8-20.1); Bilirubin, Total 0.4 mg/dL (0.2-1.2); Calc. Creatinine Clearance 0 mL/min (70-130); Calcium 9.5 mg/dL (7.8-10.44); Carbon Dioxide 29 mmol/L (23-31); Chloride 103 mmol/L (98-107); Estimated GFR-MDRD 54; Globulin 3.5 g/dL (2.4-3.5)
[2017-02-17 16:19] LABS: #Eosinphils 0.1 thou/uL (0.0-0.7); #Lymphocytes 1.6 thou/uL (1.20-3.40); #Monocytes 0.5 thou/uL (0.11-0.59); #Neutrophils 5.5 thou/uL (1.40-6.50); %Basophils 0.6 % (0.0-1.0); %Lymphocytes 20.5 % (21.0-51.0); %Monocytes 6.4 % (0.0-10.0); Anisocytosis SLIGHT = 6-15 cells (100X) (0-5/hpf); Hypochromia SLIGHT = 6-15 cells (100X) (0-5/hpf)
[2017-02-17 16:20] LABS: Troponin I 0.011 ng/mL (< 0.028)
--- NOTE | 2017-02-17 16:37 | RAD ---
AP VIEW CHEST 02/17/17 HISTORY: Weakness. Patient has history of atrial fibrillation. AP view chest is obtained on 02/17/17. Comparison made to previous exam from 01/09/17. AP view chest demonstrates cardiomegaly. EKG leads seen over the chest. The lungs are well aerated. N o evidence of acute intrathoracic abnormality noted. IMPRESSION: Cardiomegaly, otherwise unremarkable AP view chest. POS: [facility]
== END 2017-02-17 19:46 | disposition home or self-care (01) ==
LOC: ERS 15:16
DX: Z04.3 Encounter for examination and observation following other accident (principal); I48.91 Unspecified atrial fibrillation; I11.0 Hypertensive heart disease with heart failure; I50.9 Heart failure, unspecified; J44.9 Chronic obstructive pulmonary disease, unspecified; F03.90 Unspecified dementia, unspecified severity, without behavioral disturbance, psychotic disturbance, mood disturbance, and anxiety
CPT/HCPCS: 36415; 71010; 80053; 82553; 83880; 84484; 85025; 93005; J7050